=== PATIENT | female | born 1995 | race Caucasian/White ===

== ENCOUNTER → 2020-04-26 | Emergency (ER) | payer SELFPAY | LOC: ED 20:04 | DX: R69 Illness, unspecified (principal); Z53.21 Procedure and treatment not carried out due to patient leaving prior to being seen by health care provider ==

== ENCOUNTER → 2020-04-28 | Outpatient (CLI) | payer SELFPAY | LOC: LAB 18:56 | DX: U07.1 COVID-19 (principal) ==